=== PATIENT | female | born 1985 | race Caucasian/White ===

== ENCOUNTER 2022-07-08 11:12 | Emergency (ER) | payer OTHER ==
[2022-07-08 11:18] VITALS: BP 156/90; PULSE 88; RESP 18; TEMP 98.2; BMI 31.1
[2022-07-08] MEDS ORDERED: KETOROLAC TROMETHAMINE 30 MG/1 ML VIAL IM ONE (12:21)
[2022-07-08] MEDS ORDERED: ACETAMINOPHEN 500 MG TABLET (FP) PO ONE (12:21)
[2022-07-08] MEDS ORDERED: LIDOCAINE 5% TOPICAL PATCH TP ONE ×3 (12:21→12:22)
[2022-07-08] MEDS ORDERED: ACETAMINOPHEN 325 MG TABLET (FP) ONE (12:27)
[2022-07-08] MEDS ORDERED: KETOROLAC TROMETHAMINE 30 MG/1 ML VIAL ONE (12:27)
[2022-07-08] MEDS ORDERED: LIDOCAINE 5% TOPICAL PATCH ONE (12:27)
[2022-07-08] MEDS ORDERED: LIDOCAINE PATCH REMOVAL MC ONE ×3 (22:00)
== END 2022-07-08 13:28 | disposition home or self-care (01) ==
LOC: JERFT 11:12
PROC: 3E0233Z Introduction of Anti-inflammatory into Muscle, Percutaneous Approach (ICD-10-PCS; principal; 2022-07-08)
DX: M25.511 Pain in right shoulder (principal); M54.50 Low back pain, unspecified
CPT/HCPCS: 0241U-QW; 99284-25